=== PATIENT | male | born 1975 | race African-American/Black ===

== ENCOUNTER 2020-02-05 09:36 | Emergency (ER) | payer OTHER ==
[~2020-02-05] VITALS: Ht 175.3 cm; Wt 72.6 kg
[2020-02-05 09:45] VITALS: BP 140/92
--- NOTE | 2020-02-05 09:48 | NUR ---
PT AMBULATED TO ER BED 7
--- NOTE | 2020-02-05 09:58 | NUR ---
Pt c/o enlarged veins which are superfical and varicosed on the area below of the posterior knee for one year. Denies any pain at this time, but pt states he feels pain on the area s/p prolonged walking or standing. Denies truama or injury to the right knee or right leg. Denies sob or cp at this time. PATIENT STATES PAIN OF 0/10 AT THIS TIME; VSS; PATIENT POSITIONED FOR COMFORT; HOB ELEVATED; BEDRAILS UP X1; BED DOWN. ER MD MADE AWARE OF PT STATUS.
[2020-02-05 11:29] VITALS: BP 128/81
--- NOTE | 2020-02-05 11:29 | NUR ---
Patient discharged with v/s stable. Written and verbal after care instructions given and explained. Patient verbalized understanding. Ambulatory with steady gait. All questions addressed prior to discharge. Advised to follow up with PMD.
== END 2020-02-05 11:29 | disposition home or self-care (01) ==
LOC: MED 09:36
DX: M79.604 Pain in right leg (principal); R03.0 Elevated blood-pressure reading, without diagnosis of hypertension; Z88.0 Allergy status to penicillin
CPT/HCPCS: 93971; 99284; Q0092